=== PATIENT | male | born 1955 | race Caucasian/White ===

== ENCOUNTER 2018-02-20 06:19 | Inpatient (IN) ==
[~2018-02-20 06:19] MED LIST: Vancomycin 1,000 MG, Sodium Chloride IRRigation 1,000 ML IR ONE
[2018-02-20] MEDS ORDERED: CeFAZolin Syr 2,000MG/20 ML 2,000 MG/20 ML SYRINGE IVPB ONE (06:35)
[2018-02-20] MEDS ORDERED: Albuterol 2.5 MG/3 ML NEBULIZER IH ONE (06:35)
[2018-02-20] MEDS ORDERED: Heparin 1,000 UNITS/500 mL 500 ML ONE ×2 (06:42→10:19)
[2018-02-20] MEDS ORDERED: Ringers Solution, Lactated 1,000 ML IVC SCH (06:45)
[2018-02-20] MEDS ORDERED: Lidocaine -MPF 4% 5 ML AMPUL ONE (06:47)
[2018-02-20] MEDS ORDERED: *HR* Midazolam HCl 2 MG/2 ML VIAL ONE (07:00)
[2018-02-20] MEDS ORDERED: *HR* Propofol 200 MG/20 ML VIAL IVP ONE (07:00)
[2018-02-20] MEDS ORDERED: *HR* FentaNYL (PF) 100 MCG/2 ML VIAL ONE (07:00)
[2018-02-20] MEDS ORDERED: Dexamethasone 4 MG/ML VIAL ONE (07:01)
[2018-02-20] MEDS ORDERED: Ondansetron 4 MG/2 ML VIAL ONE (07:01)
[2018-02-20] MEDS ORDERED: *HR* Succinylcholine 200 MG/10 ML VIAL IVP ONE (07:01)
[2018-02-20] MEDS ORDERED: *HR* Rocuronium Bromide 50 MG/5 ML VIAL ONE (07:01)
[2018-02-20] MEDS ORDERED: Esmolol 100 MG/10 ML VIAL IVP ONE (07:01)
[2018-02-20] MEDS ORDERED: Lidocaine -MPF 2% 2 ML VIAL ONE ×3 (07:01→08:00)
[2018-02-20] MEDS ORDERED: *HR* Heparin 5,000 UNIT/ML VIAL ONE (07:01)
[2018-02-20] MEDS ORDERED: *HR* PHENYLEPHRINE 1,000 MCG/10 ML SYRINGE IVP ONE (07:01)
[2018-02-20] MEDS ORDERED: *HR* Phenylephrine 10 MG/ML VIAL ONE (07:09)
[2018-02-20] MEDS ORDERED: *HR* Remifentanil 2 MG VIAL IVP ONE (07:11)
[2018-02-20] MEDS ORDERED: *HR* Labetalol 100 MG/20 ML MDV ONE (07:15)
[2018-02-20] MEDS ORDERED: NiCARdipine 2.5 MG/10 ML Syringe IVPB ONE (07:15)
--- NOTE | 2018-02-20 07:17 | Anesthesia Evaluation PreOp ---
Date of Encounter: 02/20/18 Time of Encounter: 07:15 - Past History Planned Operation: Endograft repair AAA Cardiac History: Hyperlipidemia, Other (Infra-renal AAA measures 5.2 x 4.9 cm; hx DVT) Pulmonary History: Smoker, COPD MEDIA CENTER ASSISTANT History: Other (Lumbar disc disease) Other Medical History: GERD Anesthesia History: Past Anesthesia (5 shoulder surgeries, knee surgery, hernia repair), Problems (pleurisy/pneumonia after one of his shoulder surgeries) Alcohol Use: none Drug use: none Medications and Allergies Albuterol Sulfate [Ventolin Hfa] 108 aerosol IH Q4H PRN 02/20/18 [History] Aspirin [Ecotrin] 325 mg PO DAILY 02/20/18 [History] Gabapentin [Neurontin] 400 mg PO QID 02/20/18 [History] Naproxen Sodium [Aleve] 440 mg PO DAILY 02/20/18 [History] Omeprazole [PriLOSEC] 40 mg PO DAILY 02/20/18 [History] Oxycodone HCl/Acetaminophen [Percocet 7.5-325 mg Tablet] 1 each PO TID PRN 02/20/18 [History] clonazePAM [Clonazepam] 0.5 mg PO DAILY 02/20/18 [History] Allergy/AdvReac Type Severity Reaction Status Date / Time acetaminophen [From Vicodin] Allergy Itching Verified 02/17/15 12:56 hydrocodone [From Vicodin] Allergy Itching Verified 02/17/15 12:56 Sulfa (Sulfonamide Allergy Nausea Verified 02/17/15 12:56 Antibiotics) - Meds/Allergy Pre-op Review Medications Reviewed: Yes Allergies Reviewed: Yes Beta Blockers on Current Med List: No Anesthesia Results - Labs Laboratory Tests 02/14/18 02/14/18 02/14/18 12:05 12:05 12:05 WBC 10.2 Hgb 15.3 Hct 47.4 Plt Count 204 PT 10.6 INR 0.9 APTT 32.5 Sodium 138 Potassium 4.2 Chloride 104 Carbon Dioxide 30 H BUN 16 Creatinine 0.87 Est GFR ( Amer) > 60 Est GFR (Non-Af Amer) > 60 BUN/Creatinine Ratio 18 Glucose 97 Calculated Osmolality 287 Calcium 9.0 - Imaging EKG: image reviewed (Per stress test, NSR with RBBB) Additional studies: 02-12-18 Pharmacologic nuclear stress: Pharm stress ECG negative for ischemia at level of HR achieved Gated EF = 61% Medium sized, moderate intensity, fixed apical inferior apical septal and apex defect with normal wall motion. These findings are most consistent with artifact. Perfusion imaging was negative for ischemia or infarct. Anesthesia Exam Last Vital Signs Temp 98.1 F 02/20/18 06:48 Pulse 71 02/20/18 06:48 Resp 18 02/20/18 06:48 BP 153/93 02/20/18 06:48 Pulse Ox 94 02/20/18 06:48 Weight: 101 kg NPO (# of Hours): > 8 hrs - HEENT Pupil (Motor): Pupils equal, EOMI Mallampati: III Teeth: Edentulous Oral Opening: Greater than 3 - MEDIA CENTER ASSISTANT LOC: Oriented MEDIA CENTER ASSISTANT Motor: Normal RUE, Normal LUE, Normal RLE, Normal LLE, Normal Face - Cardiac Rhythm: Regular Murmur: None - Pulmonary Breath Sounds: bilateral Clear Respiratory Effort: Symmetrical Anesthesia Assess/Plan ASA Score: 3 Level of consciousness: Cooperative Anesthetic Plan: General Monitoring Plan: Standard Monitors (f), A-Line, CVC Recovery Plan: PACU
[2018-02-20] MEDS ORDERED: Heparin 1,000 UNITS/500 mL 1,500 ML ONE (07:21)
[2018-02-20] MEDS ORDERED: Isovue-300 150 ML INFUS..BTL ONE (07:22)
--- NOTE | 2018-02-20 07:33 | History & Physical Report ---
Date of Encounter: 02/20/18 Time of Encounter: 07:28 24 Hour HP Update - Instructions Instructions: If the History and Physical is less than 30 days old and was completed prior to A.M. admission and or procedure and has NOT been updated on calendar day of procedure please complete this update prior to performing procedure. - Update Patient reports changes in Medical Condition: No Changes in examination, assessment, or condition: No Changes in Medication: No Preop tests/diagnostics Reviewed: Yes Surgery Remains Indicated: Yes Consent for Planned Operative Procedure(s) Verified: Yes - Pre-Operative Checklist Preoperative Checklist Indicated: Yes Prophylactic Antibiotic Ordered: Yes (vancomycin due to MRSA risk) Home Medications Include Beta Chino: No Beta Chino Taken Today (Day of Surgery): No Beta Chino Taken Yesterday (Day Prior to Surgery): No Is VTE Prophylaxis Indicated?: Yes
[2018-02-20] MEDS ORDERED: Ondansetron 4 MG/2 ML VIAL IVP ONE (11:23)
[2018-02-20] MEDS ORDERED: *HR* Labetalol 20 MG/4 ML SYRINGE IVP PRN ×2 (11:23→12:27)
[2018-02-20] MEDS ORDERED: *HR* Promethazine 25 MG/ML VIAL IVP PRN (11:23)
[2018-02-20] MEDS ORDERED: *HR* OxyCODONE Immed Rel 5 MG TABLET PO PRN (11:23)
[2018-02-20] MEDS: *HR* HYDROmorphone (PF) 1 MG/ML SYRINGE IVP PRN ×4 (11:32→11:47)
--- NOTE | 2018-02-20 12:02 | Operative Note ---
Date of procedure: 02/20/18 Pre-op diagnosis: 5.2 cm infrarenal abdominal aortic aneurysm. Post-op diagnosis: same Procedure: 1. Endograft repair of 5.2cm infrarenal abdominal aortic aneurysm with Cook Zenith modular bifurcated graft with 2 docking limbs with radiologic supervision and interpretation. 2. Right femoral vessel exposure for endograft repair of abdominal aortic aneurysm. 3. Left femoral vessel exposure for endograft repair of abdominal aortic aneurysm. Complications: None Anesthesia: GETA Surgeon: Tomas Middleton Was there an information technology assistant present: Yes Seismic Survey Assistant: Gabriel Ravi Estimated blood loss (cc): 100 Specimen: None Condition: stable Disposition: PACU Procedure in Detail: Indications: The patient is a 62 year old male with a history of coronary artery disease, hypertension, diabetes and tobacco abuse. He was found to have a 5.3cm infrarenal abdominal aortic aneurysm. His anatomy was appropriate for endograft placement. Repair was recommended to reduce his risk of rupture. Procedure: The patient was identified, brought to the operating room and placed in the supine position on the operating room table. After induction of general endotracheal anesthesia, the patient was cleaned and draped in normal sterile fashion. Oblique incisions were made over both groins sharply. Hemostasis was obtained with electrocautery. Using blunt and sharp and electrocautery dissection, the right and left common, deep and superficial femoral arteries were dissected circumferentially and surrounded with Vesseloops. At this point, the patient received 5000 units of heparin intravenously and then bilateral femoral punctures with large-bore needles were performed. Bentson wires were advanced into the aorta under fluoroscopic view. Given the anatomy, the main body was selected to be the right side of the patient. The needles were exchanged for bilateral #8-Urugu[place] sheaths and a long Pigtail catheter was advanced over the right wire into the aortic arch. The wire was replaced with a Lunderquist wire. The catheter was removed and repositioned in the suprarenal aorta via the left femoral artery. The main body was inserted over the Lunderquist wire with the contralateral limb being in the anterolateral position. An aortogram was then performed at the level of the renal artery. The graft was positioned just below the renal arteries and the first 2 segments were deployed. A repeat aortogram revealed adequate infrarenal placement. The graft was then deployed until the contralateral limb exposed. After confirming adequate infrarenal placement, the suprarenal stent was deployed in the usual fashion. The contralateral limb was then selected with a Bentson wire using a guiding catheter. Intragraft placement of the wire was confirmed by placing the pigtail and spinning it freely as well as injecting a small amount of contrast. An oblique view of the pelvis was performed with contrast to size the left extension limb. The #8-U[place]ayan sheath was removed and exchanged for the appropria te limb, which was advanced under fluoroscopic view and positioned. It was then expanded and the introducer was removed. The remaining portion of the main body was deployed, the top cap was retrieved and the introducer was removed. An oblique view of the right pelvis was performed in a similar fashion to determine the length of the graft on the right. The graft extension was then advanced on the right and positioned in the usual fashion. Upon completion of the graft docking limb extension, a Coda balloon was then advanced into the graft proximal and distal endpoints as well as overlap were expanded with gentle pressure. The balloon was left in the suprarenal position and a Flush catheter was placed in the suprarenal aorta. A completion angiogram revealed no evidence of an endoleak. The left renal artery was not identified on completion angiography. Multiple attempts to cannulate the vessel with guiding catheters and wires were made. Additional angiography was performed it was then determined that the left renal artery was covered by the proximal graft and was occluded. Tension was applied to the Vesseloops in the groin. The bilateral sheaths were then removed. After confirming hemodynamic stability, the wires were then removed. The bilateral arteriotomies were repaired with a running 6-0 Prolene. Antibiotic irrigation was infused into the groin. Platelet rich and platelet poor plasma were infused into the incisions. The bilateral groins were closed with a single layer of 2-0 Vicryl followed by two layers of 3-0 Vicryl followed by a layer of 3-0 monocryl in the subcuticular region. Sterile dressings were applied. The patient was then extubated and taken to the recovery room in stable condition.
--- NOTE | 2018-02-20 12:18 | Anesthesia Evaluation Post Op ---
Date of Encounter: 02/20/18 Time of Encounter: 12:15 - Vital Signs Vital Signs: Vital Signs/O2 Sat, Most Current Temp Pulse Resp BP Pulse Ox 97.4 F L 65 14 165/95 95 02/20/18 12:07 02/20/18 12:07 02/20/18 12:07 02/20/18 12:07 02/20/18 12:07 - Lungs Lungs: Clear Ascult./Percussion - Airway Airway: Non-obstructed - Cardiovascular Regular Rate - Mental Status Mental Status: Alert & Oriented, Answers Appropriately - Pain Pain Scale: 5 (back) Pain Scale used: Numeric (1 - 10) - Nausea Vomiting Nausea Vomiting: Not Present - Hydration Hydration: Ice chips, Mauricio catheter - Discharge PostOp Status: Transfer Patient to floor
[2018-02-20] MEDS ORDERED: Ondansetron 4 MG/2 ML VIAL IVP PRN (12:27)
[2018-02-20] MEDS ORDERED: Acetaminophen 325 MG TABLET PO PRN (12:27)
[2018-02-20] MEDS ORDERED: Naloxone 0.4 MG/ML INJ IVP PRN (12:27)
[2018-02-20] MEDS ORDERED: OXYCODONE Oral CONC 10 MG/0.5 ML ORAL.SYG SL PRN ×2 (12:27)
[2018-02-20] MEDS: *HR* OxyCODONE/APAP 10/325 TABLET PO PRN ×2 (13:40→23:32)
[2018-02-20] MEDS: Gabapentin 400 MG CAPSULE PO SCH ×3 (13:40→20:47)
--- NOTE | 2018-02-20 14:17 | Operative Note ---
Date of procedure: 02/20/18 Pre-op diagnosis: Abdominal aortic aneurysm Post-op diagnosis: same Procedure: Endovascular repair of abdominal aortic aneurysm using a Cook Zenith endovascular stent graft system Bilateral open femoral artery exposure Anesthesia: GETA Surgeon: Tomas Middleton Co-Surgeon: Gabriel Ravi Was there an commercial lines assistant present: No Estimated blood loss (cc): 100 Specimen: 0 Condition: stable Disposition: PACU Procedure in Detail: History Jeison Szymanski is a 62-year-old white male. He was found to have a 5.2 cm abdominal aortic aneurysm. Patient OPERATING room for endovascular repair. Procedure After informed consent was obtained the patient was taken to the operating room. General endotracheal anesthesia was established under arterial line pressure monitoring. The abdomen and groin and upper thighs were sterilely prepped and draped. A timeout protocol was observed. A 2 team surgical approach was utilized for this procedure due to the patient's comorbid conditions. She was also done to facilitate intraoperative decision making and to reduce anesthetic time and blood loss. Bilateral common femoral artery exposure with then performed. Oblique incisions were made in the groin. Dissection was carried down to the femoral arteries and controlled obtained with vessel loops. The arteries were then punctured with 18- gauge needles. A wire was then inserted in this was followed by an 8 Yoruba sheath and dilator. The dilator was removed and the sheath was aspirated and flushed. Pigtail catheter was inserted via the right side and the wire was exchanged for a Lunderquist stiff wire. Pigtail catheter was then placed on the left side. The main body was selected and placed Viabahn right side. The main body was a 28 x 82 mm device. This was deployed after an antegrade was obtained demonstrating the aorta and position of the renal arteries. This device was deployed to the point that the docking limb on the left side was open. The suprarenal stent was then deployed as well. The left side was cannulated from the left groin. Appropriate position was confirmed by the insertion of contrast. Then an antegrade was obtained and measurements taken. The left-sided limb was a 16 x 90 mm graft limb. This was then inserted and deployed. Attention was then directed back to the right side. The right side was then fully deployed. An angiogram was obtained for the right limb and then the third and final component was deployed after an angiogram of the right iliac system. This was a 20 x 74 mm stent graft. A Coda balloon was then inserted and the stent graft was gently expanded. A completion antegrade was performed. This demonstrated no endoleak's. However the left renal artery was not patent. Attempts at cannulation of the left renal artery with a Sos Omni catheter and manipulation of the stent graft by deploying the Coda balloon and retracting the stent graft distally were unsuccessful in securing access to the orifice of the left renal artery. Therefore it was concluded that this vessel appeared to be covered and thrombosed. The right renal artery was widely patent. The iliac bifurcation was patent bilaterally. The securing devices were then removed. A 6-0 Prolene suture was used to close the access sites in the common femoral artery. After appropriate backbleeding and flushing the limbs were opened and pulsatile flow was restored to the lower extremities. The femoral incisions were then irrigated with antibody containing solution. Hemostasis was achieved. The wounds were then closed in layers using absorbable suture. The patient was extubated in the operating room. He was taken to the recovery room in stable condition.
[2018-02-20] MEDS: 0.9 % Sodium Chloride 1,000 ML IVC SCH (15:35)
[2018-02-20] MEDS: *HR* OxyCODONE Immed Rel 5 MG TABLET PO PRN ×2 (17:43→21:47)
[2018-02-20] MEDS: *HR* Metoprolol 5 MG/5 ML VIAL IVP SCH ×2 (17:46→23:25)
[2018-02-20] MEDS ORDERED: *HR* Heparin 5,000 UNIT/ML VIAL SQ SCH (18:00)
--- NOTE | 2018-02-20 19:03 | Event Note ---
Date of Encounter: 02/20/18 Time of Encounter: 18:30 The patient is alert and comfortable. He reports adequate pain control. He reports chronic lower back pain. He is making adequate urine. His abdomen is soft, nontender and nondistended. His bandages are dry and there are no hematomas. He will continue with intravenous hydration pain control on a clear liquid diet tonight. I will be advanced tomorrow. His labs will be rechecked in the morning with possible discharge tomorrow
[2018-02-20] MEDS ORDERED: clonazePAM 0.5 MG TABLET PO SCH (21:00)
[2018-02-21] MEDS: *HR* OxyCODONE Immed Rel 5 MG TABLET PO PRN ×2 (03:33→07:53)
[2018-02-21 04:06] LABS: Basophils % 0.1 %; Hematocrit 44.2 % (37.5-50.1); Hemoglobin 14.4 g/dL (12.9-16.9); Immature Granulocytes % 0.6 % (0-4); Lymphocytes # 1.1 K/mcL (0.6-4.6); Lymphocytes % 4.4 %; Mean Corpuscular HGB Conc 32.6 g/dL (31.6-35.5); Mean Corpuscular Hemoglobin 29.8 pg (28.0-33.3); Mean Corpuscular Volume 91.5 fL (83.0-100.0); Mean Platelet Volume 10.7 fL (9.4-12.4); Monocytes # 1.5 K/mcL (0.0-1.3); Monocytes % 6.1 %; Neutrophils # 21.8 K/mcL (1.6-8.9); Platelet Count 188 K/mcL (140-400); Red Blood Count 4.83 M/mcL (4.19-5.50); Red Cell Distribution Width 12.8 % (11.5-14.5); Segmented Neutrophils % 88.8 %
[2018-02-21 04:26] LABS: BUN/Creatinine Ratio 14 (6-26); Blood Urea Nitrogen 17 mg/dL (8-23); Calcium 8.4 mg/dL (8.6-10.3); Carbon Dioxide 25 mEq/L (23-29); Chloride 105 mEq/L (98-107); Glucose 122 mg/dL (70-105); Osmolality,Calculated 287 (280-300); Potassium 4.5 mEq/L (3.5-5.1); Sodium 137 mEq/L (136-145); eGFR For Non-African Americans 59 (> 60)
[2018-02-21 04:36] LABS: Platelet Estimate Normal (Normal)
[2018-02-21] MEDS: 0.9 % Sodium Chloride 1,000 ML IVC SCH (04:40)
[2018-02-21] MEDS: *HR* Metoprolol 5 MG/5 ML VIAL IVP SCH ×2 (05:50→12:08)
[2018-02-21] MEDS: *HR* OxyCODONE/APAP 10/325 TABLET PO PRN ×2 (05:53→12:10)
[2018-02-21] MEDS ORDERED: *HR* Heparin 5,000 UNIT/ML VIAL SQ SCH (06:00)
--- NOTE | 2018-02-21 07:31 | Discharge Summary ---
Orders not resulted at time of discharge: Pending orders 02/22/18 04:00 Basic Metabolic Panel AM 0400 Complete Blood Count [HEME] AM 0400 Date of Encounter: 02/21/18 Time of Encounter: 07:40 - Discharge Diagnosis (1) AAA (abdominal aortic aneurysm) without rupture Status: Acute - Hospital Course Hospital course: Mr. Szymanski is a 62 year old male - Time Spent with Patient Total time spent providing and/or coordinating discharge services: - Discharge Medications Prescriptions: OxyCODONE/APAP 10/325 [Percocet 10/325 MG] 1 each PO Q4HR PRN 5 Days #30 tablet PRN Reason: Postoperative pain Home Medications: Albuterol Sulfate [Ventolin Hfa] 108 aerosol IH Q4H PRN 02/20/18 [History] Aspirin [Ecotrin] 325 mg PO DAILY 02/20/18 [History] Gabapentin [Neurontin] 400 mg PO QID 02/20/18 [History] Naproxen Sodium [Aleve] 440 mg PO DAILY 02/20/18 [History] Omeprazole [PriLOSEC] 40 mg PO DAILY 02/20/18 [History] Oxycodone HCl/Acetaminophen [Percocet 7.5-325 mg Tablet] 1 each PO TID PRN 02/20/18 [History] clonazePAM [Clonazepam] 0.5 mg PO DAILY 02/20/18 [History] OxyCODONE/APAP 10/325 [Percocet 10/325 MG] 1 each PO Q4HR PRN 5 Days #30 tablet 02/21/18 [Rx] Allergies/Adverse Reactions: Allergy/AdvReac Type Severity Reaction Status Date / Time acetaminophen [From Vicodin] Allergy Itching Verified 02/17/15 12:56 hydrocodone [From Vicodin] Allergy Itching Verified 02/17/15 12:56 Sulfa (Sulfonamide Allergy Nausea Verified 02/17/15 12:56 Antibiotics) Date of admission: 02/20/18 12:23 Primary care physician: Osmin Oliver MD Exam Vital Signs, Last 4 Hours Temp Pulse Resp BP Pulse Ox 02/21/18 07:16 98.4 F 78 18 133/78 95 02/21/18 06:40 56 122/71 02/21/18 05:50 55 145/74 02/21/18 04:35 56 146/74 02/21/18 03:54 99.3 F 57 18 132/72 94 02/21/18 03:37 57 132/72 - Patient Status Disposition: Home, Self-Care Condition: Good Functional capacity at discharge: independent ambulation Overall status at discharge: patient is back to baseline - Discharge Instructions Follow Up With: Tomas Middleton MD [Partnered Physician] - 03/26/18 3:50 pm Osmin Oliver MD [Primary Care Provider] - 02/28/18 4:00 pm Additional Instructions: Remove bandage and shower on 02/22/2018: Wash wounds gently and pat to dry. Applied dry gauze to wounds daily for 7 days. No tub baths or swimming until 03/20/2018. Call Dr. Middleton at [phone] with questions or concerns. - Diet and Activity Activity: increase activity as tolerated Diet: advance to your usual diet
[2018-02-21] MEDS: Gabapentin 400 MG CAPSULE PO SCH ×2 (07:53→12:11)
[2018-02-21] MEDS ORDERED: Aspirin Enteric Coated 325 MG Tablet PO SCH (09:00)
[2018-02-21 11:16] VITALS: BP 131/70
== END 2018-02-21 14:19 | disposition home or self-care (01) | DRG 269 ==
LOC: SAMDAY 06:19 → ICNU 12:23 → 2NNU 17:16
PROVIDERS: ADMIT Surgery; ATTEND Surgery

== ENCOUNTER 2018-07-27 10:58 | Inpatient (IN) ==
[2018-07-27] MEDS ORDERED: Ipratropium/Albuterol Neb 3 ML IH ONE (11:40)
--- NOTE | 2018-07-27 11:43 | Emergency Department Note ---
Disposition Clinical Impression: ACS (acute coronary syndrome) Disposition: Admitted As Inpatient Referrals: NONE,PCP [Primary Care Provider] - General Adult HPI - General Chief complaint: ED Shortness of Breath/Dyspnea Stated complaint: Bi-lateral LE swelling,SUSAN,ABD Pain Time Seen by Provider: 07/27/18 11:05 Source: patient Mode of arrival: ambulatory Limitations: no limitations Nursing Notes Reviewed: Yes Vital Signs Reviewed: Yes - History of Present Illness HPI Narrative: Attestation note: Patient was seen with the emergency medicine resident/nurse practitioner/physician medical assistant per diem/transitional resident/medical student: Dr. MARCIAL DUCKWORTH I have personally performed a face to face evaluation on this patient. I have reviewed and agree with history and physical examination patient management and disposition. Briefly the salient points of the case are as follows: 63-year-old male history of COPD obesity smoker 3 weeks of increasing leg swelling or orthopnea paroxy smal nocturnal dyspnea and chest discomfort has had several vascular surgeries has no known coronary artery disease and no recent cardiac workup heart score is 4 at least. EKG shows no acute ischemic changes does have bilateral swelling of his extremities consistent with edema no rales or rhonchi Lungs initially was hypoxic 91% on room air Adjustment was 97 patient will get chest x-ray screening labs patient will be admitted for ACS workup. Patient will be getting 325 mg of aspirin providing 30 minutes critical care service for this patient. Disposition pending Pain Scale: 9 - Related Data Home Medications Medication Instructions Recorded Confirmed Albuterol Sulfate [Ventolin Hfa] 108 aerosol IH Q4H PRN 02/20/18 02/20/18 Aspirin [Ecotrin] 325 mg PO DAILY 02/20/18 02/20/18 Gabapentin [Neurontin] 400 mg PO QID 02/20/18 02/20/18 Naproxen Sodium [Aleve] 440 mg PO DAILY 02/20/18 02/20/18 Omeprazole [PriLOSEC] 40 mg PO DAILY 02/20/18 02/20/18 Oxycodone HCl/Acetaminophen 1 each PO TID PRN 02/20/18 02/20/18 [Percocet 7.5-325 mg Tablet] clonazePAM [Clonazepam] 0.5 mg PO DAILY 02/20/18 02/20/18 Allergies Allergy/AdvReac Type Severity Reaction Status Date / Time acetaminophen [From Vicodin] Allergy Itching Verified 07/27/18 11:03 hydrocodone [From Vicodin] Allergy Itching Verified 07/27/18 11:03 Sulfa (Sulfonamide Allergy Nausea Verified 07/27/18 11:03 Antibiotics) Past Medical History - Past Medical History Medical history: Reports: COPD, DVT, GERD Psychiatric history: Reports: no psych history - Social History Smoking Status: Current every day smoker Smokeless Tobacco Status: No Alcohol use: Reports: none Drug use: Reports: none Physical Exam - General General appearance: alert Course Vital Signs Temperature 97.4 F L 07/27/18 11:03 Pulse Rate 82 07/27/18 11:03 Respiratory Rate 18 07/27/18 11:03 Blood Pressure 109/85 07/27/18 11:03 O2 Sat by Pulse Oximetry 91 07/27/18 11:03 Temperature 97.4 F L 07/27/18 11:10 Pulse Rate 91 07/27/18 11:21 Respiratory Rate 20 07/27/18 11:21 Blood Pressure 164/108 07/27/18 11:21 O2 Sat by Pulse Oximetry 93 07/27/18 11:21 Oxygen Delivery Oxygen Delivery Room Air
[2018-07-27 11:47] LABS: Basophils # 0.1 K/mcL (0.0-0.2); Basophils % 0.5 %; Eosinophils # 0.2 K/mcL (0.0-0.6); Eosinophils % 1.9 %; Hematocrit 47.6 % (37.5-50.1); Hemoglobin 14.9 g/dL (12.9-16.9); Immature Granulocytes % 0.3 % (0-4); Lymphocytes # 1.6 K/mcL (0.6-4.6); Lymphocytes % 15.2 %; Mean Corpuscular HGB Conc 31.3 g/dL (31.6-35.5); Mean Corpuscular Volume 89.3 fL (83.0-100.0); Mean Platelet Volume 10.3 fL (9.4-12.4); Monocytes # 0.6 K/mcL (0.0-1.3); Monocytes % 5.4 %; Platelet Count 203 K/mcL (140-400); Red Blood Count 5.33 M/mcL (4.19-5.50); Red Cell Distribution Width 14.1 % (11.5-14.5); Segmented Neutrophils % 76.7 %
[2018-07-27 12:10] LABS: Albumin 4.2 g/dL (3.5-5.7); Albumin/Globulin Ratio 1.5 (1.1-2.2); Bilirubin,Direct 0.2 mg/dL (0.0-0.2); Bilirubin,Indirect 0.5 mg/dL (0.0-1.2); Bilirubin,Total 0.7 mg/dL (0.3-1.0); Globulin 2.8 g/dL (2.4-3.5)
--- NOTE | 2018-07-27 12:15 | Emergency Department Note ---
Disposition Clinical Impression: Elevated troponin CHF (congestive heart failure) Qualifiers: Heart failure type: unspecified Heart failure chronicity: acute Qualified Code(s): I50.9 - Heart failure, unspecified COPD (chronic obstructive pulmonary disease) Qualifiers: COPD type: unspecified COPD Qualified Code(s): J44.9 - Chronic obstructive pulmonary disease, unspecified Disposition: Admitted As Inpatient Referrals: NONE,PCP [Primary Care Provider] - Forms: ED Satisfaction Letter Time of Disposition: 12:31 General Adult HPI - General Chief complaint: ED Shortness of Breath/Dyspnea Stated complaint: Bi-lateral LE swelling,SUSAN,ABD Pain Time Seen by Provider: 07/27/18 11:05 Source: patient Mode of arrival: ambulatory Limitations: no limitations Nursing Notes Reviewed: Yes Vital Signs Reviewed: Yes - History of Present Illness HPI Narrative: 63 yo male with past medical history of AAA repair in February, COPD presents to the emergency department with several weeks of worsening abdominal distention, lower leg edema and shortness of breath. Patient states that last night he was unable to sleep while laying flat and this concerned him and his . He has never had anything like this happen before and has no history of heart attack or heart failure. He does have a family history of heart issues but does not know exactly what was wrong with either of his parents. Patient denies fever, chills, chest pain. He does admit to waking up in the middle the night with increased shortness of breath. He has also had shortness of breath with exertion. He has been coughing up some whitish sputum mostly in the mornings. He denies nausea and vomiting. He has been urinating appropriately without burning or blood. Pain Scale: 9 - Related Data Home Medications Medication Instructions Recorded Confirmed Albuterol Sulfate [Ventolin Hfa] 108 aerosol IH Q4H PRN 02/20/18 02/20/18 Aspirin [Ecotrin] 325 mg PO DAILY 02/20/18 02/20/18 Gabapentin [Neurontin] 400 mg PO QID 02/20/18 02/20/18 Naproxen Sodium [Aleve] 440 mg PO DAILY 02/20/18 02/20/18 Omeprazole [PriLOSEC] 40 mg PO DAILY 02/20/18 02/20/18 Oxycodone HCl/Acetaminophen 1 each PO TID PRN 12/06/18 12/06/18 [Percocet 7.5-325 mg Tablet] clonazePAM [Clonazepam] 0.5 mg PO DAILY 02/20/18 02/20/18 Allergies Allergy/AdvReac Type Severity Reaction Status Date / Time acetaminophen [From Vicodin] Allergy Itching Verified 07/27/18 11:03 hydrocodone [From Vicodin] Allergy Itching Verified 07/27/18 11:03 Sulfa (Sulfonamide Allergy Nausea Verified 07/27/18 11:03 Antibiotics) All systems ED: reviewed and negative except as stated. Review of Systems: As Per HPI Constitutional: Denies: fever, chills, weakness Cardiovascular: Reports: dyspnea on exertion, orthopnea, edema, paroxysmal nocturnal dyspnea. Denies: chest pain, palpitations, syncope Respiratory: Reports: cough, dyspnea. Denies: wheezes, hemoptysis Gastrointestinal: Reports: abdominal pain. Denies: nausea, vomiting, diarrhea Genitourinary: Denies: dysuria, hematuria Musculoskeletal: Denies: back pain, neck pain Integumentary: Denies: rash Neurological: Denies: headache Endocrine: Reports: fatigue Past Medical History - Past Medical History Attestation: Yes The following information was validated with the patient. Source: patient Medical history: Reports: COPD, DVT, GERD Psychiatric history: Reports: no psych history - Social History Smoking Status: Current every day smoker Smokeless Tobacco Status: No Alcohol use: Reports: none Drug use: Reports: none Physical Exam - General Limitations: no limitations General appearance: alert, in no apparent distress - Head Head exam: atraumatic, normocephalic - Eye Eye exam: Present: normal appearance, PERRL, EOMI - ENT ENT exam: normal exam - Neck Neck exam: Present: normal inspection. Absent: tenderness - Chest Chest inspection: Present: normal inspection. Absent: tenderness, rash - Respiratory Respiratory exam: Present: normal lung sounds bilaterally - Cardiovascular Cardiovascular exam: Present: regular rate, normal rhythm - Abdominal Exam Abdominal exam: Present: tenderness, distention. Absent: guarding, rebound, rigidity Abdominal tenderness: Present: diffuse, mild - Extremities Exam Extremities exam: Present: pedal edema (1+ pitting edema to mid bryant). Absent: calf tenderness - Neurological Exam Neurological exam: Present: alert, oriented X3 - Psychiatric Psychiatric exam: Present: normal affect, normal mood - Skin Skin exam: Present: warm, dry, intact Course Vital Signs Temperature 97.4 F L 07/27/18 11:03 Pulse Rate 82 07/27/18 11:03 Respiratory Rate 18 07/27/18 11:03 Blood Pressure 109/85 07/27/18 11:03 O2 Sat by Pulse Oximetry 91 07/27/18 11:03 Temperature 97.4 F L 07/27/18 11:10 Pulse Rate 79 07/27/18 12:28 Respiratory Rate 18 07/27/18 12:28 Blood Pressure 149/96 07/27/18 12:28 O2 Sat by Pulse Oximetry 96 07/27/18 12:28 Oxygen Delivery Oxygen Delivery Nasal Cannula Medical Decision Making - [facility] Narrative Medical decision making narrative: Patient presents with signs and symptoms concerning for new onset heart failure. Patient will be evaluated with EKG, chest x-ray, basic lab work, troponin, BNP. 1220 - patient's chest x-ray shows evidence of pulmonary edema and mild cardiomegaly. EKG did not show any acute changes. Patient's troponin is elev ated at 0.07, as he is not currently having any chest pain it is unlikely that this is from ACS and more likely due to his new heart failure or stress from his COPD. The patient will be admitted to the hospitalist for his heart failure workup and to continue to trend troponins. The patient will be given an aspirin and Lasix at this time. Patient was updated of this plan of care and is agreeable with that. - Medical Records Medical records reviewed: Yes I reviewed the patient's medical records. - Lab Data Lab results reviewed: Yes I reviewed the patient's lab results. Result diagrams: 07/27/18 11:20 07/27/18 11:20 Lab Results 07/27/18 07/27/18 07/27/18 Range/Units 11:20 11:20 11:20 WBC 10.4 (4.3-11.1) K/mcL RBC 5.33 (4.19-5.50) M/mcL Hgb 14.9 (12.9-16.9) g/dL Hct 47.6 (37.5-50.1) % MCV 89.3 (83.0-100.0) fL MCH 28.0 (28.0-33.3) pg MCHC 31.3 L (31.6-35.5) g/dL RDW 14.1 (11.5-14.5) % Plt Count 203 (140-400) K/mcL MPV 10.3 (9.4-12.4) fL Immature Gran % 0.3 (0-4) % Seg Neutrophils % 76.7 % Lymphocytes % 15.2 % Monocytes % 5.4 % Eosinophils % 1.9 % Basophils % 0.5 % Neutrophils # 8.0 (1.6-8.9) K/mcL Lymphocytes # 1.6 (0.6-4.6) K/mcL Monocytes # 0.6 (0.0-1.3) K/mcL Eosinophils # 0.2 (0.0-0.6) K/mcL Basophils # 0.1 (0.0-0.2) K/mcL Sodium 142 (136-145) mEq/L Potassium 4.3 (3.5-5.1) mEq/L Chloride 105 (98-107) mEq/L Carbon Dioxide 31 H (23-29) mEq/L BUN 15 (8-23) mg/dL Creatinine 1.26 (0.70-1.30) mg/dL Est GFR ( Amer) > 60 (> 60) Est GFR (Non-Af Amer) 58 L (> 60) BUN/Creatinine Ratio 12 (6-26) Glucose 105 (70-105) mg/dL Calculated Osmolality 295 (280-300) Calcium 9.7 (8.6-10.3) mg/dL Total Bilirubin (0.3-1.0) mg/dL Direct Bilirubin (0.0-0.2) mg/dL Indirect Bilirubin (0.0-1.2) mg/dL AST (13-39) Units/L ALT (7-52) Units/L Alkaline Phosphatase (34-104) Units/L Troponin I 0.07 H* (< 0.04) ng/mL B-Natriuretic Peptide 772 H (Less than 100) pg/mL Serum Total Protein (6.4-8.9) g/dL Albumin (3.5-5.7) g/dL Globulin (2.4-3.5) g/dL Albumin/Globulin Ratio (1.1-2.2) 07/27/18 Range/Units 11:20 WBC (4.3-11.1) K/mcL RBC (4.19-5.50) M/mcL Hgb (12.9-16.9) g/dL Hct (37.5-50.1) % MCV (83.0-100.0) fL MCH (28.0-33.3) pg MCHC (31.6-35.5) g/dL RDW (11.5-14.5) % Plt Count (140-400) K/mcL MPV (9.4-12.4) fL Immature Gran % (0-4) % Seg Neutrophils % % Lymphocytes % % Monocytes % % Eosinophils % % Basophils % % Neutrophils # (1.6-8.9) K/mcL Lymphocytes # (0.6-4.6) K/mcL Monocytes # (0.0-1.3) K/mcL Eosinophils # (0.0-0.6) K/mcL Basophils # (0.0-0.2) K/mcL Sodium (136-145) mEq/L Potassium (3.5-5.1) mEq/L Chloride (98-107) mEq/L Carbon Dioxide (23-29) mEq/L BUN (8-23) mg/dL Creatinine (0.70-1.30) mg/dL Est GFR ( Amer) (> 60) Est GFR (Non-Af Amer) (> 60) BUN/Creatinine Ratio (6-26) Glucose (70-105) mg/dL Calculated Osmolality (280-300) Calcium (8.6-10.3) mg/dL Total Bilirubin 0.7 (0.3-1.0) mg/dL Direct Bilirubin 0.2 (0.0-0.2) mg/dL Indirect Bilirubin 0.5 (0.0-1.2) mg/dL AST 21 (13-39) Units/L ALT 17 (7-52) Units/L Alkaline Phosphatase 80 (34-104) Units/L Troponin I (< 0.04) ng/mL B-Natriuretic Peptide (Less than 100) pg/mL Serum Total Protein 7.0 (6.4-8.9) g/dL Albumin 4.2 (3.5-5.7) g/dL Globulin 2.8 (2.4-3.5) g/dL Albumin/Globulin Ratio 1.5 (1.1-2.2) - Radiology Data Radiology results reviewed: Yes I reviewed the patient's radiology results. - EKG Data EKG #1 EKG attestation: Yes I reviewed and interpreted this EKG. EKG results narrative: EKG obtained at 11:14 on 07/27/2018 Heart rate 87 bpm, ME interval 144, QRS duration 123, QT 504, QTC 607 Sinus rhythm with PACs. Nonspecific intraventricular conduction delay. No signs of ST segment elevations or depressions. No significant changes when compared to previous EKG dated 01/09/2006.
[2018-07-27 12:20] LABS: BUN/Creatinine Ratio 12 (6-26); Blood Urea Nitrogen 15 mg/dL (8-23); Calcium 9.7 mg/dL (8.6-10.3); Carbon Dioxide 31 mEq/L (23-29); Chloride 105 mEq/L (98-107); Glucose 105 mg/dL (70-105); Osmolality,Calculated 295 (280-300); Potassium 4.3 mEq/L (3.5-5.1); Sodium 142 mEq/L (136-145); Troponin I 0.07 ng/mL (< 0.04); eGFR For Non-African Americans 58 (> 60)
[2018-07-27] MEDS ORDERED: Aspirin 81 MG TAB.CHEW PO ONE (12:20)
[2018-07-27] MEDS ORDERED: Furosemide 20 MG/2 ML VIAL IVP ONE (12:27)
[2018-07-27] MEDS ORDERED: Naloxone 0.4 MG/ML INJ IVP PRN (13:27)
[2018-07-27] MEDS ORDERED: Ipratropium/Albuterol Neb 3 ML IH PRN (13:38)
[2018-07-27] MEDS: Furosemide 40 MG/4 ML VIAL IVP SCH ×2 (14:38→20:18)
--- NOTE | 2018-07-27 17:20 | Internal Med History&Physical ---
Date of Encounter: 07/27/18 Time of Encounter: 17:00 Internal Medicine - H&P: HPI Chief complaint: Shortness of breath for several days History of present illness: Mr. Szymanski is a 63 year old male with pmh of AAA repair in february, COPD presenting with complaints of shortness of breath of about 4 week s duration. Patient says he ahs noticed worsening abdominal swelling and lower extremity edema in the last 2 weeks. Shortness of breath has gotten so sever to the point he is unable to lay flat in a bed and had to sleep sitting upright in a chair last night. He denies any coughing or wheezing, or any phlegm production. He recalls his dad had heart failure and was on lasix but he has never been diagnosed with heart failure himself. He denies any fevers , chills or chest pain In the ER, he was given one dose of lasix and a breathing treatment. CXR showed pulmonary edema and he is being admitted for further management Past Med Surg Social Fam HX - Past Medical History Medical history: COPD, DVT, GERD Additional medical history: LDDD, RLS. Psychiatric history: no psych history - Past Surgical History Additional surgical history: AAA, Left Shoulder Sx x5, Marita, Hernia Repair, - Social History Smoking Status: Current every day smoker Packs per day: 1.5 Smokeless Tobacco Status: No Alcohol use: none Drug use: none - Family History Mother Living Status: Hx Family Cardiac Disorders: Yes (AICD) Hx Family Respiratory Disorders: Yes Father Living Status: Hx Family Cardiac Disorders: Yes Hx Family Respiratory Disorders: Yes Internal Medicine - H&P: Meds Albuterol Sulfate [Ventolin Hfa] 108 aerosol IH Q4H PRN 02/20/18 [History] Aspirin [Ecotrin] 325 mg PO DAILY 02/20/18 [History] Gabapentin [Neurontin] 400 mg PO QID 02/20/18 [History] Naproxen Sodium [Aleve] 440 mg PO DAILY 02/20/18 [History] Omeprazole [PriLOSEC] 40 mg PO DAILY 02/20/18 [History] Oxycodone HCl/Acetaminophen [Percocet 7.5-325 mg Tablet] 1 each PO TID PRN 02/20/18 [History] clonazePAM [Clonazepam] 0.5 mg PO DAILY 02/20/18 [History] Allergy/AdvReac Type Severity Reaction Status Date / Time acetaminophen [From Vicodin] Allergy Itching Verified 07/27/18 11:03 hydrocodone [From Vicodin] Allergy Itching Verified 07/27/18 11:03 Sulfa (Sulfonamide Allergy Nausea Verified 07/27/18 11:03 Antibiotics) All Systems PM: A 10-system review of systems was performed and is negative for pertinent findings except as documented above in the HPI. - Constitutional Constitutional: no chills, no fever(s), no night sweats - EENT Eyes: no change in vision, no discharge, no pain, no photophobia Ears: no ear discharge, no ear pain, no tinnitus Nose, mouth and throat: no dysphagia, no nasal discharge, no neck pain, no sore throat - Cardiovascular Cardiovascular ROS IM: dyspnea, no chest pain, no diaphoresis, no li ghtheadedness, no palpitations, no syncope - Respiratory Respiratory: cough, dyspnea, no wheezing, no excessive phlegm production - Gastrointestinal Gastrointestinal: no abdominal pain, no diarrhea, no hematemesis, no radha tochezia, no melena, no nausea, no vomiting - Musculoskeletal Musculoskeletal ROS IM: no numbness, no tingling - Integumentary Integumentary IM: no rash, no unusual bruising - Neurological Neurological ROS: no confusion, no convulsions, no focal weakness, no numbness, no tingling, no tremor(s) - Hematologic/Lymphatic Hematologic/Lymphatic: no easy bruising - Constitutional Vitals: Temp Pulse Resp BP Pulse Ox 98.3 F 72 17 153/94 92 07/27/18 14:33 07/27/18 14:33 07/27/18 14:33 07/27/18 14:33 07/27/18 14:33 General appearance: Present: A&O X 3 Exam: NAD - Head Head exam: Present: atraumatic, normocephalic - Eye Eye exam: Present: PERRL, conjuntiva pink, sclera anicteric Pupils: Present: PERRL - Neck Neck exam general surgery: Present: supple, trachea midline. Absent: lymphad enopathy - Respiratory Respiratory exam: Present: decreased breath sounds, rales. Absent: accessory muscle use, rhonchi, wheezes - Cardiovascular Cardiovascular exam: Present: RRR, +S1, +S2. Absent: diastolic murmur, gallop, rubs, systolic murmur - GI/Abdominal GI/Abdominal exam: Present: normal bowel sounds, soft, no peritoneal signs. Absent: distended, tenderness - Extremities Exam Extremities exam: Present: pedal edema, warm, radial pulses palpable and symmetrical. Absent: calf tenderness, cyanotic - Neurological Exam Neurological exam: Present: CN II-XII intact, oriented X3, no focal deficits. Absent: pronater drift, facial droop, speech deficit - Skin Skin exam: Present: dry, intact Internal Med - H&P Results - Labs CBC & Chem 7: 07/27/18 11:20 07/27/18 11:20 Labs: Short CBC 07/27/18 Range/Units 11:20 WBC 10.4 (4.3-11.1) K/mcL Hgb 14.9 (12.9-16.9) g/dL Hct 47.6 (37.5-50.1) % Plt Count 203 (140-400) K/mcL Neutrophils # 8.0 (1.6-8.9) K/mcL BMP 07/27/18 11:20 Sodium 142 Potassium 4.3 Chloride 105 Carbon Dioxide 31 H BUN 15 Creatinine 1.26 Glucose 105 Calcium 9.7 Cardiac Enzymes 07/27/18 07/27/18 Range/Units 11:20 14:49 Troponin I 0.07 H* 0.06 H* (< 0.04) ng/mL Liver Function 07/27/18 Range/Units 11:20 Total Bilirubin 0.7 (0.3-1.0) mg/dL Direct Bilirubin 0.2 (0.0-0.2) mg/dL AST 21 (13-39) Units/L ALT 17 (7-52) Units/L Alkaline Phosphatase 80 (34-104) Units/L Albumin 4.2 (3.5-5.7) g/dL - Impressions ITS Impressions Chest X-Ray 07/27/18 11:34 IMPRESSION: CHF and mild pulmonary edema. D/ / Sae Gamboa MD / Sae Gamboa MD Interpreting Provider: Sae Gamboa MD - Assessment and Plan (1) CHF (congestive heart failure) Current Visit: Yes Status: Acute Assessment and plan: Pt comes in with shortness of breath and orthopnea likely secondary to acute CHF CXR shows pulmonary edema. Will start on BID lasix . Obtain 2d echo Start beta blockers when acute CHF improves Qualifiers: Heart failure type: unspecified Heart failure chronicity: acute Qualified Code(s): I50.9 - Heart failure, unspecified (2) COPD (chronic obstructive pulmonary disease) Current Visit: Yes Status: Acute Assessment and plan: No acute exacerbation. Nebs PRN Qualifiers: COPD type: unspecified COPD Qualified Code(s): J44.9 - Chronic obstructive pulmonary disease, unspecified (3) AAA (abdominal aortic aneurysm) without rupture Current Visit: No Status: Acute Assessment and plan: Stable. No acute intervention (4) Tobacco abuse Current Visit: Yes Status: Acute Assessment and plan: Counseled (5) Elevated troponin Current Visit: Yes Status: Acute Assessment and plan: Likely demand. No acute intervention (6) DVT prophylaxis Current Visit: Yes Status: Acute Assessment and plan: heparin sc - Time Spent With Patient Total time spent is greater than 50% in coordination of care (as documented) at patient's floor/unit and/or counseling patient:
[2018-07-27] MEDS: Gabapentin 400 MG CAPSULE PO SCH ×2 (18:01→20:19)
[2018-07-27] MEDS: *HR* Heparin 5,000 UNIT/ML VIAL SQ SCH (18:02)
[2018-07-27] MEDS: Nicotine 21 MG PATCH.TD24 TD SCH (20:18)
[2018-07-27] MEDS: *HR* OxyCODONE/APAP 7.5/325 TABLET PO PRN (20:19)
[2018-07-28 02:51] LABS: Basophils # 0.1 K/mcL (0.0-0.2); Basophils % 0.4 %; Eosinophils # 0.3 K/mcL (0.0-0.6); Eosinophils % 2.5 %; Hematocrit 45.7 % (37.5-50.1); Hemoglobin 14.9 g/dL (12.9-16.9); Immature Granulocytes % 0.2 % (0-4); Lymphocytes % 15.2 %; Mean Corpuscular HGB Conc 32.6 g/dL (31.6-35.5); Mean Corpuscular Hemoglobin 28.7 pg (28.0-33.3); Mean Corpuscular Volume 87.9 fL (83.0-100.0); Mean Platelet Volume 10.7 fL (9.4-12.4); Monocytes % 7.6 %; Neutrophils # 9.5 K/mcL (1.6-8.9); Platelet Count 222 K/mcL (140-400); Red Cell Distribution Width 14.1 % (11.5-14.5); Segmented Neutrophils % 74.1 %
[2018-07-28 03:14] LABS: Magnesium 2.1 mg/dL (1.6-2.6); Phosphorous 3.6 mg/dL (2.7-4.5); Potassium 3.5 mEq/L (3.5-5.1)
[2018-07-28] MEDS: *HR* Heparin 5,000 UNIT/ML VIAL SQ SCH ×2 (04:54→18:39)
[2018-07-28] MEDS: *HR* OxyCODONE/APAP 7.5/325 TABLET PO PRN ×3 (04:54→21:40)
[2018-07-28] MEDS ORDERED: Perflutren Lipid Microsphere 1.3 ML in 0.9 % Sodium Chloride 8.7 ML IVP ONE (07:38)
[2018-07-28] MEDS ORDERED: NAPROXEN SODIUM 440 MG PO SCH (09:00)
[2018-07-28] MEDS: Nicotine 21 MG PATCH.TD24 TD SCH (10:19)
[2018-07-28] MEDS: Gabapentin 400 MG CAPSULE PO SCH ×4 (10:20→21:40)
[2018-07-28] MEDS: clonazePAM 0.5 MG TABLET PO SCH (10:20)
[2018-07-28] MEDS: Aspirin Enteric Coated 325 MG Tablet PO SCH (10:20)
[2018-07-28] MEDS: Furosemide 40 MG/4 ML VIAL IVP SCH (10:20)
--- NOTE | 2018-07-28 13:29 | Internal Med Progress Note ---
Hospitalist Progress Note - Encounter Date of Encounter: 07/28/18 Time of Encounter: 13:26 - Subjective Interval History: Mr. Szymanski is a 63 year old male with known PMH of AAA repair in February, COPD, chronic tobacco dependence and GERD pt presented to ER with complaints of progressively worsening shortness of breath about 4 week s duration. Patient sa ys he has noticed worsening lower extremity edema in the last 2 weeks. Shortness of breath has gotten so sever to the point he is unable to lay flat in a bed and had to sleep sitting upright in a chair last night. CXR showed pulmonary edema. He was admitted in the hospital and placed him on alarm security or surveillance monitor. His troponin's was slightly elevated at 0.07 and adynamic. He was placed on IV Lasix. Patient stated his feeding much better today. Denied anymore shortness of breath / LE edema. Denied any CP. - Exam Vitals: Temp Pulse Resp BP Pulse Ox 98.0 F 84 18 148/95 92 07/28/18 11:31 07/28/18 11:31 07/28/18 11:31 07/28/18 11:31 07/28/18 11:31 Exam: Gen: Alert, awake, Oriented to time,place and person Chest: Diminished breath sounds B/L, mild wheezing, No crackles, No rales Heart: S1S2+ RRR No murmurs Abd: Soft, NT, BS +, No organomegaly Ext: trace edema, pulses are palpable, No calf tenderness Neuro : Benign findings Skin: No rash. - Assessment and Plan (1) CHF (congestive heart failure) Current Visit: Yes Status: Acute Assessment and Plan: Pt comes in with shortness of breath and orthopnea likely secondary to acute CHF CXR shows pulmonary edema. His 2 D Echo showed - LVEF 35-40%, Moderate left ventricular diastolic dysfunction so he does have combined Systolic and diastolic CHF exacerbation Cont IV Lasix 20mg BID Started him on BB Metoprolol 25mg BID, Lisinopril and ASA check FLP in AM Consulted cardiology for further eval may need LHC.. NPO after mid night (2) Elevated troponin Current Visit: Yes Status: Acute Assessment and Plan: Stable and adynamic @ 0.07 Most likely demand. No acute intervention (3) AAA (abdominal aortic aneurysm) without rupture Current Visit: No Status: Acute Assessment and Plan: s/p repair f/u with surgeon as an out pt (4) COPD (chronic obstructive pulmonary disease) Current Visit: Yes Status: Acute Assessment and Plan: No acute exacerbation. Nebs PRN (5) DVT prophylaxis Current Visit: Yes Status: Acute Assessment and Plan: heparin sc (6) Tobacco abuse Current Visit: Yes Status: Acute Assessment and Plan: Counseled to quit smoking placed on nicotine patch - Time Spent with Patient Total time spent is greater than 50% in coordination of care (as documented) at patient's floor/unit and/or counseling patient: Internal Medicine: Result - Labs CBC & Chem 7: 07/28/18 00:59 07/28/18 00:59 Labs: Short CBC 07/28/18 Range/Units 00:59 WBC 12.8 H (4.3-11.1) K/mcL Hgb 14.9 (12.9-16.9) g/dL Hct 45.7 (37.5-50.1) % Plt Count 222 (140-400) K/mcL Neutrophils # 9.5 H (1.6-8.9) K/mcL BMP 07/28/18 00:59 Sodium 141 Potassium 3.5 Chloride 100 Carbon Dioxide 33 H BUN 19 Creatinine 1.47 H Glucose 86 Calcium 10.0 Cardiac Enzymes 07/27/18 07/27/18 07/28/18 Range/Units 14:49 19:29 00:59 Troponin I 0.06 H* 0.06 H* 0.07 H* (< 0.04) ng/mL - Impressions Impressions Echocardiogram 07/27/18 13:30 Impressions: LVEF 36-40%. Moderate global left ventricular systolic dysfunction with regional variations. Mildly dilated left ventricle. Moderate left ventricular diastolic dysfunction. Normal right ventricular structure and function. Mild tricuspid regurgitation. No evidence of pulmonary hypertension. Left Ventricular Wall Motion: Rest Echo Findings The apex, apical inferior, mid inferior, basal inferior, apical anterior, mid anterior, basal anterior, apical septal, mid inferior septal, basal inferior septal, apical lateral, mid anterior lateral, basal anterior lateral, mid anterior septal, mid inferior lateral, basal anterior septal and basal inferior lateral junior were hypokinetic. Findings: Study Quality * Technically sub-optimal due to poor echocardiographic windows. ECG Findings * Sinus rhythm with BBB. Left Ventricle * LVEF 36-40%. Moderate global left ventricular systolic dysfunction with regional variations. * Mildly dilated left ventricle. * Moderate left ventricular diastolic dysfunction. * Definity echo contrast was used. * Atypical septal motion consistent with bundle branch block. * Right Ventricle * Normal right ventricular structure and function. Left Atrium * Normal left atrial size. Right Atrium * Normal right atrial size. Aortic Valve * Aortic valve not well visualized. * Normal aortic valve structure. * No aortic regurgitation. * No aortic stenosis. Mitral Valve * Normal mitral valve structure. * No mitral regurgitation. * No mitral stenosis. Tricuspid Valve * Mild tricuspid regurgitation. * No evidence of pulmonary hypertension. * Normal tricuspid valve structure. * No tricuspid stenosis. Pulmonic Valve * Pulmonic valve not well visualized. Aorta * Normally sized aortic root. Pericardium * There is a trivial pericardial effusion present. * There is no echocardiographic evidence of tamponade. IVC * Normal IVC dimensions and inspiratory collapse. Pulmonary Artery * Pulmonary artery not well visualized. Consult Discharge Plan - Plan Referrals: NONE,PCP [Primary Care Provider] - (1) CHF (congestive heart failure) Qualifiers: Heart failure type: combined systolic and diastolic Heart failure chronicity: acute Qualified Code(s): I50.41 - Acute combined systolic (congestive) and diastolic (congestive) heart failure (4) COPD (chronic obstructive pulmonary disease) Qualifiers: COPD type: unspecified COPD Qualified Code(s): J44.9 - Chronic obstructive pulmonary disease, unspecified
--- NOTE | 2018-07-28 13:56 | Cardiology Consult Note ---
Date of Encounter: 07/28/18 Time of Encounter: 13:48 Assessment and Plan (1) CHF (congestive heart failure) Current Visit: Yes Status: Acute Acute systolic CHF. EF 35-40% on echo. Global systolic dysfunction. Presented with fluid overload. Treated with IV lasix. LLE went back to baseline. RLL with continued significant edema. Check doppler for unilateral edema. H/o remote DVT. Lasix discontinued for mild CORNELIO. Change lopressor to carvedilol. Add aceI if CORNELIO resolves. Ischemic evaluation recommended for further evaluation of new CMP. Risk, benefi t, and alternatives reviewed. Patient agrees with plan. NPO after midnight. Strict I&O and daily weight. Qualifiers: Heart failure type: combined systolic and diastolic Heart failure chronicity: acute Qualified Code(s): I50.41 - Acute combined systolic (congestive) and diastolic (congestive) heart failure (2) Unilateral edema of lower extremity Current Visit: Yes Status: Acute Unilateral edema noted. H/o prior DVT no longer on AC. LE doppler ordered t r/o recurrent DVT. (3) Elevated troponin Current Visit: Yes Status: Acute Mild troponin elevation. EKG- SR with RBBB. Likely demand ischemia in the setting of acute systolic CHF. LHC pending for further evaluation of new CMP. Discussion w patient/family: The assessment and plan as outlined above was discussed with the patient and/or family members who expressed understanding and agreement. All questions were answered. Thank you for involving us in the care of your patient. Please call with any questions. History of Present Illness Consult date: 07/28/18 Requesting physician: Sheri Lira Consult reason: Abnormal echo Chief complaint: SOB, edema, weight gain, pND History of present illness: Mr. Szymanski is a 63 year old male with past medical history of AAA repair 02/2018, COPD, tobacco use, DVT, and newly diagnosed HTN. He presented with increasing BLE edema, PND, and SOB with exertion for 4 weeks. . States that he woke up stru ggling to breath and diaphoretic 4 days ago. He was treated for acute CHF. His echocardiogram showed newly reduced EF at 35-40%. Global systolic dysfunction. Cardiology consulted for new cardiomyopathy. Patient denies prior history of CHF or CAD. He denies chest pain. Denies palpitations. Denies dizziness or syncope. C/o chronic left shoulder pain he relates to prior shoulder surgery. [facility] had DE in his 50's. Past Med Surg Social Fam HX - Past Medical History Medical history: COPD, DVT, GERD Additional medical history: LDDD, RLS. Psychiatric history: no psych history - Past Surgical History Additional surgical history: AAA, Left Shoulder Sx x5, Marita, Hernia Repair, - Social History Smoking Status: Current every day smoker Packs per day: 1.5 Smokeless Tobacco Status: No Alcohol use: none Drug use: none - Family History Mother Living Status: Hx Family Cardiac Disorders: Yes (AICD) Hx Family Respiratory Disorders: Yes Father Living Status: Hx Family Cardiac Disorders: Yes Hx Family Respiratory Disorders: Yes Medications and Allergies Albuterol Sulfate [Ventolin Hfa] 108 aerosol IH Q4H PRN 02/20/18 [History] Aspirin [Ecotrin] 325 mg PO DAILY 02/20/18 [History] Gabapentin [Neurontin] 400 mg PO QID 02/20/18 [History] Naproxen Sodium [Aleve] 440 mg PO DAILY 02/20/18 [History] Omeprazole [PriLOSEC] 40 mg PO DAILY 02/20/18 [History] Oxycodone HCl/Acetaminophen [Percocet 7.5-325 mg Tablet] 1 each PO TID PRN 02/20/18 [History] clonazePAM [Clonazepam] 0.5 mg PO DAILY 02/20/18 [History] Allergy/AdvReac Type Severity Reaction Status Date / Time acetaminophen [From Vicodin] Allergy Itching Verified 07/27/18 11:03 hydrocodone [From Vicodin] Allergy Itching Verified 07/27/18 11:03 Sulfa (Sulfonamide Allergy Nausea Verified 07/27/18 11:03 Antibiotics) All Systems Review: The remainder of the systems were reviewed and are negative Physical Examination Vital Signs, Last 4 Hours Temp Pulse Resp BP Pulse Ox 07/28/18 11:31 98.0 F 84 18 148/95 92 General: Conversant, No Apparent Distress HEENT: Atraumatic, Normocephaly, Mucus Membranes Moist Neck: No JVD, Normal carotid pulses Cardiac: Reg Rate and Rhythm, Normal S1 and S2, No Murmur Lungs: Normal Breath Sounds, No Wheeze, Rales, Rhonchi Neuro: Alert and responsive, No focal deficits noted Abdomen: Soft, Non-Tender Skin: No rashes noted on visualized skin Musculoskeletal: No Chest Wall Tenderness Extremities: No Clubbing, No Cyanosis, Normal Pulses, Other (1+ pitting edema RLE.) Results 07/28/18 00:59 07/28/18 00:59 Lab Results 07/27/18 07/27/18 07/28/18 14:49 19:29 00:59 WBC Hgb Hct Plt Count Sodium Potassium Chloride Carbon Dioxide BUN Creatinine Glucose Calcium Magnesium Troponin I 0.06 H* 0.06 H* 0.07 H* 07/28/18 07/28/18 00:59 00:59 WBC 12.8 H Hgb 14.9 Hct 45.7 Plt Count 222 Sodium 141 Potassium 3.5 Chloride 100 Carbon Dioxide 33 H BUN 19 Creatinine 1.47 H Glucose 86 Calcium 10.0 Magnesium 2.1 Troponin I - Imaging and Cardiology Echo: report reviewed - EKG Interpretation EKG results cardiology: personally reviewed Consult Discharge Plan - Plan Referrals: NONE,PCP [Primary Care Provider] -
[2018-07-28 15:41] LABS: Calcium 9.6 mg/dL (8.6-10.3); Potassium 3.8 mEq/L (3.5-5.1)
[2018-07-28] MEDS ORDERED: Furosemide 20 MG/2 ML VIAL IVP SCH (17:00)
[2018-07-29] MEDS: *HR* Heparin 5,000 UNIT/ML VIAL SQ SCH ×2 (04:31→18:13)
[2018-07-29 05:33] LABS: BUN/Creatinine Ratio 17 (6-26); Blood Urea Nitrogen 22 mg/dL (8-23); Carbon Dioxide 28 mEq/L (23-29); Chloride 100 mEq/L (98-107); Chol/HDL Ratio 3.3 (0-4.9); Cholesterol 114 mg/dL (< 200); Glucose 84 mg/dL (70-105); HDL Cholesterol 35 mg/dL (40-59); LDL Cholesterol,Calculated 54 mg/dL (0-99); Magnesium 1.9 mg/dL (1.6-2.6); Osmolality,Calculated 291 (280-300); Potassium 3.8 mEq/L (3.5-5.1); Sodium 139 mEq/L (136-145); Triglycerides 124 mg/dL (< 150); eGFR For Non-African Americans 55 (> 60)
[2018-07-29] MEDS: *HR* OxyCODONE/APAP 7.5/325 TABLET PO PRN ×2 (07:05→18:16)
[2018-07-29] MEDS: Gabapentin 400 MG CAPSULE PO SCH ×4 (09:24→22:19)
[2018-07-29] MEDS: clonazePAM 0.5 MG TABLET PO SCH (09:24)
[2018-07-29] MEDS: Nicotine 21 MG PATCH.TD24 TD SCH (09:24)
[2018-07-29] MEDS: Aspirin Enteric Coated 325 MG Tablet PO SCH (09:25)
--- NOTE | 2018-07-29 14:41 | Pre-Sedation Evaluation ---
Pre-sedation evaluation - Pre-sedation checklist Date of procedure: 07/29/18 Procedure: [facility] Recent Vitals: Last Vital Signs Temp 98.4 F 07/29/18 11:21 Pulse 72 07/29/18 11:21 Resp 18 07/29/18 11:21 BP 143/90 07/29/18 11:21 Pulse Ox 93 07/29/18 11:21 H&P (including ROS) documented in medical record: Yes Previous reaction to sedatives/anesthetics: No Dietary Status: NPO after Midnight Airway Assessment: Patient can open mouth completely, TMJ function normal, Micrognathia (under-bite, receding chin) absent, Neck with adequate range of mot ion Dentition: No loose teeth or bridges Possible difficult airway: No ASA Classification *see protocol: CLASS II-Mild systemic disease Plan of Care: Pt appropriate candidate for procedure/moderate/conscious sedation, Risks/benefits of procedure/sedation discussed w/ patient/family Cardiac Registry (Cardio Only) - Functional Capacity Functional Capacity: < 4 METS - Clincal Frailty Scale Clinical Frailty Scale: Vulnerable
--- NOTE | 2018-07-29 16:17 | Internal Med Progress Note ---
Hospitalist Progress Note - Encounter Date of Encounter: 07/29/18 Time of Encounter: 16:15 - Subjective Interval History: Mr. zSymanski is a 63 year old male with known PMH of AAA repair in February, COPD, chronic tobacco dependence and GERD pt presented to ER with complaints of progressively worsening shortness of breath about 4 week s duration. Patient sa ys he has noticed worsening lower extremity edema in the last 2 weeks. Shortness of breath has gotten so sever to the point he is unable to lay flat in a bed and had to sleep sitting upright in a chair last night. CXR showed pulmonary edema. He was admitted in the hospital and placed him on conveyor monitor. His troponin's was slightly elevated at 0.07 and adynamic. He was placed on IV Lasix. Patient stated his feeding better today. Denied anymore shortness of breath / LE edema. Denied any CP. He still has moderate SOB and LIND. still requiring 2 lit O2. - Exam Vitals: Temp Pulse Resp BP Pulse Ox 98.1 F 68 18 131/86 92 07/29/18 15:11 07/29/18 15:11 07/29/18 15:11 07/29/18 15:11 07/29/18 15:11 Exam: Gen: Alert, awake, Oriented to time,place and person Chest: Diminished breath sounds B/L, mild wheezing, No crackles, No rales Heart: S1S2+ RRR No murmurs Abd: Soft, NT, BS +, No organomegaly Ext: trace edema, pulses are palpable, No calf tenderness Neuro : Benign findings Skin: No rash. - Assessment and Plan (1) CHF (congestive heart failure) Current Visit: Yes Status: Acute Assessment and Plan: Pt comes in with shortness of breath and orthopnea likely secondary to acute CHF CXR shows pulmonary edema. His 2 D Echo showed - LVEF 35-40%, Moderate left ventricular diastolic dysfunct ion so he does have combined Systolic and diastolic CHF exacerbation Cont IV Lasix 20mg BID Started him on BB Metoprolol 25mg BID, Lisinopril and ASA Reviewed FLP Consulted cardiology for further eval..Scheduled for LHC today Patient does need to stay in the hospital more than 2 midnights due to his complex medical problems acute hypoxic respiratory failure with new onset systolic CHF exacerbation. So we will change him to full admission today. I did review my colleague Dr. Sanchez's H & P including HPI, PMH, PSH, FH, SH, and ROS no changes noticed (2) Acute respiratory failure with hypoxia Current Visit: Yes Status: Acute Assessment and Plan: Due to CHF exacerbation still requiring 2 lit O2 may need home O2 eval (3) Elevated troponin Current Visit: Yes Status: Acute Assessment and Plan: Stable and adynamic @ 0.07 Most likely demand. going for [facility] today (4) AAA (abdominal aortic aneurysm) without rupture Current Visit: No Status: Acute Assessment and Plan: s/p repair f/u with surgeon as an out pt (5) COPD (chronic obstructive pulmonary disease) Current Visit: Yes Status: Acute Assessment and Plan: No acute exacerbation. Nebs PRN (6) Acute kidney injury superimposed on CKD Current Visit: Yes Status: Acute Assessment and Plan: Seems to be he does have CORNELIO with CKD-2 cont close monitoring will start him on Mucormyst 600mg BID x 4 doses (7) Tobacco abuse Current Visit: Yes Status: Acute Assessment and Plan: Counseled to quit smoking placed on nicotine patch (8) DVT prophylaxis Current Visit: Yes Status: Acute Assessment and Plan: heparin sc - Time Spent with Patient Total time spent is greater than 50% in coordination of care (as documented) at patient's floor/unit and/or counseling patient: Internal Medicine: Result - Labs CBC & Chem 7: 07/28/18 00:59 07/29/18 03:51 Labs: BMP 07/29/18 03:51 Sodium 139 Potassium 3.8 Chloride 100 Carbon Dioxide 28 BUN 22 Creatinine 1.32 H Glucose 84 Calcium 9.0 Consult Discharge Plan - Plan Referrals: NONE,PCP [Primary Care Provider] - (1) CHF (congestive heart failure) Qualifiers: Heart failure type: combined systolic and diastolic Heart failure chronicity: acute Qualified Code(s): I50.41 - Acute combined systolic (congestive) and diastolic (congestive) heart failure (5) COPD (chronic obstructive pulmonary disease) Qualifiers: COPD type: unspecified COPD Qualified Code(s): J44.9 - Chronic obstructive pulmonary disease, unspecified
--- NOTE | 2018-07-29 16:20 | Electrocardiograph Report ---
[address] [address] Test Date: 2018-07-27 Pat Name: Jeison Szymanski Department: [id number] Room: 3B Gender: M Ex Chef: : 1955 Requested By: Radha Murray Order Number: [id number] Reading MD: Isai Aguilar Measurements Intervals [place] Rate: 87 P: 78 [place]: 144 QRS: 117 QRSD: 123 T: -10 QT: 504 QTc: 607 Interpretive Statements Sinus rhythm Atrial premature complex RBBB Electronically Signed On 07-29-2018 16:19:12 EDT by Isai Aguilar
[2018-07-29] MEDS ORDERED: Heparin 1,000 UNITS/500 mL 500 ML ONE (16:23)
[2018-07-29] MEDS ORDERED: ISOVUE-370 200 ML INFUS..BTL ONE (16:23)
[2018-07-29] MEDS ORDERED: 0.9 % Sodium Chloride 1,000 ML ONE (16:23)
[2018-07-29] MEDS ORDERED: *HR* Heparin 10,000 UNIT/10 ML VIAL ONE (16:23)
[2018-07-29] MEDS ORDERED: Nitroglycerin 1,000 MCG/10 ML VIAL IV ONE (16:23)
[2018-07-29] MEDS ORDERED: *HR* Midazolam HCl 2 MG/2 ML VIAL ONE (16:47)
[2018-07-29] MEDS ORDERED: *HR* FentaNYL (PF) 100 MCG/2 ML VIAL ONE (16:47)
--- NOTE | 2018-07-29 17:39 | Invasive Diagnostic Lab Proc ---
Name: Jeison Szymanski Date of Study: 07/29/2018 Date: 1955 Ht: 70.9in Medical Record#: [id number] Age: 63 Wt: 216.05lb Gender: Male BSA: 2.18 Order #: [id number] BMI: 30.25 Physicians Procedure Physician: Nan Shelton MD, [facility] Referring MD: Referring MD: Staff Name Position Time In Cristofer Werner RN Monitor 04:44 PM Noa Byrnes RN Corduroy Cutting Supervisor 04:45 PM Aleyda, Lacey RT (R) Scrub 04:45 PM Indications Indication Non-Stemi Procedures Performed Procedure L HRT ARTERY/VENTRICLE ANGIO Pre-Procedure Checklist Informed consent is complete signed and on chart. H&P is on chart. ID band is on and ID verified with patient. Patient NPO for procedure The procedure was described for the patient and questions were answered. ECG is on chart. Plan of Care Patient will tolerate the procedure without complications. Adequate level of comfort will be maintained. Hemodynamics will remain stable Patient will recover from procedure without complications. Respiratory function will be maintained. Cardiac rhythm will remain stable. Patient temperature will be maintained. Patient and/or family have verbalized understanding of the procedure. Patient Education Chief Complaint/Reason for Test: Cardiac Cath Developmental Category: Adult (18-64 years) Developmentally Appropriate for Age: Yes Learning Barriers: None Education Needs: Procedure Education Method: Verbal Information Taught: Cardiac Cath Educational Evaluation: Able to repeat information Intravenous Access Time IV Size Location DC'd Fluid/Drip Rate Units RN 18g 1 /" Patent On Arrival 0.9NaCl ml/hr Allergies Sulfa (Sulfonamide Antibiotics) hydrocodone acetaminophen SULFA Vital Signs Time BP (mmHg) HR (bpm) O2 Sat. RR (bpm) LOC 04:50 PM / % 5 = Fully awake and oriented or at pre-proc level 04:50 PM / % 4 = Oriented but drowsy 04:47 PM 163 / 112 85 97 % 18 04:51 PM 156 / 100 86 94 % 10 04:56 PM 148 / 94 82 91 % 15 05:01 PM 158 / 103 73 93 % 23 05:06 PM 151 / 95 79 93 % 16 05:11 PM 139 / 99 88 94 % 22 05:16 PM 150 / 98 78 95 % 12 05:05 PM / % 4 = Oriented but drowsy Procedural Medications Time Medication Dose Units Method Given By 04:50 PM Oxygen 2 L/min nasal cannula Noa Byrnes RN 04:50 PM Versed 2 mg Intravenous Noa Byrnes RN 04:50 PM Fentanyl 50 mcg Intravenous Noa Byrnes RN 04:57 PM Benadryl 50 mg Intravenous Noa Byrnes RN 04:59 PM Lidocaine 2% 19 ml Subcutaneous Nan Shelton MD, [facility] ASA Classification: CLASS II- Mild systemic disease (i.e. well-controlled diabetes, hypertension, asthma, cigarette smoking) Abrahan Score Preprocedure Postprocedure Activity 2- Moves 4 extremities sustained head lift Activity 2- Moves 4 extremities sustained head lift Circulation 2- SBP +/= 20 points of pre-anesthetic level Circulation 2- SBP +/= 20 points of pre-anesthetic level Consciousness 2- Awake and alert oriented x 3 Consciousness 2- Awake and alert oriented x 3 O2 Saturation 2- Able to maintain O2 satruation of 92% on room air O2 Saturation 2- Able to maintain O2 satruation of 92% on room air Respiratory 2- Able to deep breathe and cough well Respiratory 2- Able to deep breathe and cough well Total Score 10 Total Score 10 Contrast Agent: Isovue Diagnostic Contrast: 71 ml Total Contrast: 71 ml Fluoro Dose: 27 mGy Procedure Log Time Note Enter By 04:44 PM Pt arrived to cath lab 1 at 16:44 cedwards 04:45 PM Cristofer Werner RN Position: Monitor Time in: 16:44 cedwards 04:45 PM Noa Byrnes RN Position: Corduroy Cutting Supervisor Time in: 16:45 cedwards 04:45 PM Lacey Maynard RT (R) Position: Scrub Time in: 16:45 cedwards 04:45 PM Patient charges- Angio tray pack, Navilyst 3mm J, Pulse Oximetry and ACIST tubing and transducer cedwards 04:45 PM IV Supplies used: J loop Angio Cath. cedwards 04:45 PM Hair removed from procedure site in procedure lab using clippers. Bilateral groin prepped with Chloraprep by Noa Byrnes RN, then patient was draped. Skin intact. cedwards 04:45 PM ASA Class CLASS II- Mild systemic disease (i.e. well-controlled diabetes, hypertension, asthma, cigarette smoking) cedwards 04:45 PM Meet and greet completed cedwards 04:46 PM Vitals capture started with the following parameters, Patient=Adult, Interval=5 min, Initial Mvuorotj=578 mmHg, Deflation Rate=5 mmHg, Cuff placed on Right Leg 04:46 PM Recorded ECG: HR=84 Condition=Condition 1 04:47 PM HR=85 bpm, UQYQ=906/112 mmhg, SpO2=97.0 %, Resp=18 B/min, EtCO2=32 mmHg, Comment=NSR 04:47 PM Sign in performed according to hospital policy. Informed consent was obtained. cedwards 04:47 PM Procedure start 16:47 cedwards 04:50 PM Time: 16:49 Patient comfortable and pain free: Yes cedwards 04:50 PM Time: 16:50LOC: 5 = Fully awake and oriented or at pre-proc level cedwards 04:50 PM Time: 16:50 Oxygen on at 2 L/min per nasal cannula by Noa Byrnes RN cedwards 04:50 PM Time: 16:50 Versed 2 mg Intravenous Given by Noa Byrnes RN cedwards 04:50 PM Time: 16:50 Fentanyl 50 mcg Intravenous Given by Noa Byrnes RN cedwards 04:51 PM HR=86 bpm, NYJB=121/100 mmhg, SpO2=94.0 %, Resp=10 B/min, EtCO2=32 mmHg, Comment=NSR 04:53 PM Case Start 04:53 PM CathStat 04:56 PM HR=82 bpm, TDVA=904/94 mmhg, SpO2=91.0 %, Resp=15 B/min, EtCO2=40 mmHg, Comment=NSR 04:58 PM Time: 16:57 Benadryl 50 mg Intravenous Given by Noa Byrnes RN cedwards 04:58 PM Clinical Presentation: Unstable angina cedwards 04:58 PM Time out was performed according to hospital policy. Conscious sedation and anesthesia was achieved (see medication log with in this report above) cedwards 05:01 PM Time: 16:59 19 ml Lidocaine 2% to right groin Subcutaneous Given by Nan Shelton MD, [facility] cedwards 05:01 PM Access obtained by percutaneous puncture. 5Fr 10cm Terumo [place] sheath placed in right Femoral artery. [id number] cedwards 05:01 PM HR=73 bpm, LJME=910/103 mmhg, SpO2=93.0 %, Resp=23 B/min, EtCO2=36 mmHg, Comment=NSR 05:02 PM 0.035 145cm Navilyst 3mmJ wire [id number] cedwards 05:02 PM 5Fr FL 4 catheter inserted over the wire [facility] cedwards 05:03 PM LCA angiography performed in multiple views. cedwards 05:03 PM Recorded Pressure: Ao, HR=86, Condition=Condition 1 (Aorta) Ao 134/95/114 05:04 PM Catheter removed cedwards 05:04 PM 0.035 260cm Navilyst 3mmJ wire [id number] cedwards 05:04 PM 5Fr FR 4 catheter inserted over the wire [facility] cedwards 05:05 PM Time: 16:50 Patient comfortable and pain free: Yes cedwards 05:05 PM Time: 16:50LOC: 4 = Oriented but drowsy cedwards 05:05 PM RCA angiography performed in multiple views. cedwards 05:06 PM HR=79 bpm, OZKO=627/95 mmhg, SpO2=93.0 %, Resp=16 B/min, EtCO2=41 mmHg, Comment=NSR 05:07 PM Recorded Pressure: Ao, HR=78, Condition=Condition 1 (Aorta) Ao 138/99/117 05:07 PM Catheter removed cedwards 05:07 PM 5Fr Pigtail catheter inserted over the wire [facility] cedwards 05:07 PM Catheter crossed the aortic valve and was selectively placed in the left ventricle. Pressures recorded on pullback for left heart catheterization. cedwards 05:08 PM Bolus angiogram of left Ventricle complete: 8 ml/sec for a total of 24 mls cedwards 05:09 PM Pressure channel 1 zeroed. 05:09 PM Recorded Pressure: LV, HR=80, Condition=Condition 1 (Left Ventricle) LV 141/-1/11 05:10 PM Recorded Pressure: LV, Ao, HR=81, Condition=Condition 1 (Left Ventricle) LV 119/26/40, (Aorta) Ao 128/96/112 05:11 PM Coronary Dominance: right cedwards 05:11 PM Catheter removed cedwards 05:11 PM HR=88 bpm, QYJG=070/99 mmhg, SpO2=94.0 %, Resp=22 B/min, EtCO2=40 mmHg, Comment=NSR 05:12 PM Femoral angio performed cedwards 05:12 PM Procedure completed at 17:12 07/29/2018 cedwards 05:12 PM Did you address GABY flow and Dominance? YesCoronary Dominance: right cedwards 05:13 PM Sign out completed: Radiation Dose 175.37 mGy, 27 Gy/cm2 Fluoro Time: 3.7 Isovue 370 - 200ml contrast 71 ml given by Nan Shelton MD, [facility]. Complications: None. 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 Sedation minutes 22. Cardiac Rehab Consult needed: No. Confirmed administered medications: Yes cedwards 05:13 PM Isovue 370 - 200ml,1 Bottle(s) used. cedwards 05:13 PM Arterial sheath pulled, Mynx closure device used and was Successful [id number] S/N. cedwards 05:13 PM Estimated Blood Loss: minimal cedwards 05:13 PM Post ECG NSR cedwards 05:14 PM Post Blood Pressure 139/99 cedwards 05:14 PM 17:14 Post Pulses Bilateral DP & PT 2+ cedwards 05:14 PM Information taught Cardiac Cath and Mynx cedwards 05:14 PM Education needs Procedure, Plan of Care, and Disease Process cedwards 05:14 PM Learning barriers :None cedwards 05:14 PM Education Methods Verbal cedwards 05:14 PM Education evaluation Able to repeat information cedwards 05:14 PM Site status No bleeding/hematoma - Rt Groin as reported by Nan Shelton MD, FACC at 17:14 cedwards 05:14 PM Opsite applied cedwards 05:15 PM Plavix, Effient or Brilinta given No cedwards 05:16 PM HR=78 bpm, ZIGL=681/98 mmhg, SpO2=95 %, Resp=12 B/min 05:20 PM Time: 17:05LOC: 4 = Oriented but drowsy cedwards 05:20 PM Time: 17:05 Patient comfortable and pain free: Yes cedwards 05:25 PM Lesion found in Proximal RCA. Pre Stenosis: 25 Pre GABY Flow: cedwards 05:25 PM Lesion found in Mid RCA. Pre Stenosis: 40 Pre GABY Flow: cedwards 05:26 PM Lesion found in Proximal LAD. Pre Stenosis: 20 Pre GABY Flow: cedwards 05:26 PM Lesion found in Proximal Circumflex. Pre Stenosis: 30 Pre GABY Flow: cedwards 05:26 PM Lesion found in Mid Circumflex. Pre Stenosis: 25 Pre GABY Flow: cedwards 05:28 PM Family placed in consult room. cedwards 05:28 PM Report given to 3B RN Pt taken to 3B Room #66. 17:28 cedwards 05:29 PM Patient out of room: 17:29 cedwards 05:29 PM Complications: None cedwards Complications Complication None None Hemodynamics Pressures Site Systolic/A Wave Diastolic/V Wave Mean AO 134 95 114 AO 138 99 117 LV 141 -1 11 LV 119 26 40 AO 128 96 112 Post Procedure Information Blood Pressure: 139/99 mmHg Rhythm: NSR Post procedural instructions were given Closure Device Time Device Success/Fail 07/29/2018 5:29:00 PM MynxGrip Successful Site Checks Time Location Status Staff Sheath In? Note 05:14 PM Rt Groin No bleeding/hematoma Nan Shelton MD, [facility] Pulses Time Site Pre-Procedure Post-Procedure Note Bilateral DP & PT 2+ Bilateral radial 2+ 5:14:00 PM Bilateral DP & PT 2+ Updated by Cristofer Werner RN on 07/29/2018 5:29:48 PM electronically signed on 07/29/2018 5:31:56 PM with status of Final
--- NOTE | 2018-07-29 17:47 | Electrocardiograph Report ---
[place] [address] Test Date: 2018-07-28 Pat Name: Jeison Szymanski Department: 113 Room: 3B66 Gender: M Psychologist Engineering: : 1955 Requested By: Sheri Lira Order Number: [id number] Reading MD: Anel Trammell Measurements Intervals [place] Rate: 71 P: 72 GA: 157 QRS: 114 QRSD: 132 T: 0 QT: 401 QTc: 423 Interpretive Statements SINUS RHYTHM RIGHT BUNDLE BRANCH BLOCK [120+ ms QRS DURATION, UPRIGHT V1, 40+ ms S IN I/aVL/V4/V5/V6] LEFT POSTERIOR FASCICULAR BLOCK [QRS AXIS > 109, INFERIOR Q] MODERATE T-WAVE ABNORMALITY, CONSIDER LATERAL ISCHEMIA [-0.1+ mV T WAVE IN I/aVL/V5/V6] Electronically Signed On 07-29-2018 17:45:53 EDT by Anel Trammell
[2018-07-29] MEDS ORDERED: clonazePAM 0.5 MG TABLET PO SCH (21:00)
[2018-07-29] MEDS: *HR* Acetylcysteine 20% 600 MG/3 ML ORAL SYRINGE PO SCH (22:17)
[2018-07-30] MEDS: *HR* OxyCODONE/APAP 7.5/325 TABLET PO PRN ×2 (01:15→07:47)
[2018-07-30] MEDS: *HR* Heparin 5,000 UNIT/ML VIAL SQ SCH (05:41)
[2018-07-30 06:02] LABS: Calcium 9.8 mg/dL (8.6-10.3); Magnesium 2.2 mg/dL (1.6-2.6); Potassium 3.9 mEq/L (3.5-5.1)
[2018-07-30] MEDS: Gabapentin 400 MG CAPSULE PO SCH (07:43)
[2018-07-30] MEDS: Nicotine 21 MG PATCH.TD24 TD SCH (07:44)
--- NOTE | 2018-07-30 08:54 | Discharge Summary ---
- NOTES TO OUTPATIENT PROVIDER Notes to Outpatient Provider: f/u with PCP in one week. Please start taking Lasix 40mg Po Daily from 08/01/18. Please start taking Coreg, Lisinopril and Lipitor for your heart failure. f/u with Cardiology in 2 weeks. Please go for f/u lab work BMP in 2 days. Date of Encounter: 07/30/18 Time of Encounter: 08:54 - Discharge Diagnosis (1) CHF (congestive heart failure) Priority: Primary Status: Acute Qualifiers: Heart failure type: combined systolic and diastolic Heart failure chronicity: acute Qualified Code(s): I50.41 - Acute combined systolic (congestive) and diastolic (congestive) heart failure (2) Acute respiratory failure with hypoxia Priority: Primary Status: Acute (3) Elevated troponin Priority: Primary Status: Acute (4) AAA (abdominal aortic aneurysm) without rupture Priority: Secondary Status: Acute (5) COPD (chronic obstructive pulmonary disease) Priority: Secondary Status: Acute Qualifiers: COPD type: unspecified COPD Qualified Code(s): J44.9 - Chronic obstructive pulmonary disease, unspecified (6) Acute kidney injury superimposed on CKD Priority: Secondary Status: Acute (7) Tobacco abuse Priority: Secondary Status: Acute (8) DVT prophylaxis Priority: Secondary Status: Acute Hospital course: Mr. Szymanski is a 63 year old male with known PMH of AAA repair in February, COPD, chronic tobacco dependence and GERD pt presented to ER with complaints of progressively worsening shortness of breath about 4 week s duration. Patient says he has noticed worsening lower extremity edema in the last 2 weeks. Shortness of breath has gotten so sever to the point he is unable to lay flat in a bed and had to sleep sitting upright in a chair last night. CXR showed pulmonary edema. He was admitted in the hospital and placed him on senior etl developer. His troponin's were slightly elevated at 0.07 and adynamic. He was started on IV Lasix. His symptoms started improving slowly. Still required 2 lit O2 on day after aggressive IV diuresis. His 2 D echo showed systolic dysfunction with LVEF @ 36-40%. Pt was evaluated by training engineer, who did [facility] y/d showed - Nonobstructive coronary artery disease. Recommended aggressive medical management. Placed him on ACEI, BB Coreg , Lipitor 80mg and Lasix. He does have mild CORNELIO with CKD-3, so recommend to go for f/u BMP in 2 days. Also requested to held Lasix and Lisinopril for 2 days. - Time Spent with Patient Total time spent providing and/or coordinating discharge services: - Discharge Medications Prescriptions: New Aspirin 81 mg PO DAILY tab.chew Carvedilol [Coreg] 6.25 mg PO BIDWM #60 tablet Furosemide [Lasix] 40 mg PO DAILY #30 tablet Atorvastatin Calcium [Lipitor] 80 mg PO HS #30 tab Nicotine Patch [Nicoderm] 21 mg TD DAILY #30 patch.td24 Lisinopril [Zestril] 10 mg PO DAILY #30 tablet Continued clonazePAM [Clonazepam] 0.5 mg PO DAILY Omeprazole [PriLOSEC] 40 mg PO DAILY Gabapentin [Neurontin] 400 mg PO QID Albuterol Sulfate [Ventolin Hfa] 108 aerosol IH Q4H PRN PRN Reason: Shortness Of Breath Oxycodone HCl/Acetaminophen [Percocet 7.5-325 mg Tablet] 1 each PO TID PRN PRN Reason: Pain Discontinued Naproxen Sodium [Aleve] 440 mg PO DAILY Aspirin [Ecotrin] 325 mg PO DAILY Home Medications: Albuterol Sulfate [Ventolin Hfa] 108 aerosol IH Q4H PRN 02/20/18 [History] Gabapentin [Neurontin] 400 mg PO QID 02/20/18 [History] Omeprazole [PriLOSEC] 40 mg PO DAILY 02/20/18 [History] Oxycodone HCl/Acetaminophen [Percocet 7.5-325 mg Tablet] 1 each PO TID PRN 02/20/18 [History] clonazePAM [Clonazepam] 0.5 mg PO DAILY 02/20/18 [History] Aspirin 81 mg PO DAILY tab.chew 07/30/18 [Rx] Atorvastatin Calcium [Lipitor] 80 mg PO HS #30 tab 07/30/18 [Rx] Carvedilol [Coreg] 6.25 mg PO BIDWM #60 tablet 07/30/18 [Rx] Furosemide [Lasix] 40 mg PO DAILY #30 tablet 07/30/18 [Rx] Lisinopril [Zestril] 10 mg PO DAILY #30 tablet 07/30/18 [Rx] Nicotine Patch [Nicoderm] 21 mg TD DAILY #30 patch.td24 0515/19 [Rx] Allergies/Adverse Reactions: Allergy/AdvReac Type Severity Reaction Status Date / Time acetaminophen [From Vicodin] Allergy Itching Verified 07/27/18 11:03 hydrocodone [From Vicodin] Allergy Itching Verified 07/27/18 11:03 Sulfa (Sulfonamide Allergy Nausea Verified 07/27/18 11:03 Antibiotics) Date of admission: 07/29/18 16:15 Primary care physician: PCP NONE Consults: 07/28/18 13:08 Consult to Cardiology [CONS] Routine Comment: Consulting Provider: Cardiology Mobile Reason for Consult: acute systolic CHF exacerbation Time Notified: 13:10 Call Completed: Yes 07/28/18 13:18 Consult to Nurse Navigator [CONS] Routine Comment: CHF, COPD - Constitutional Vitals: Temp Pulse Resp BP Pulse Ox 97.9 F 65 18 145/95 93 07/30/18 07:37 07/30/18 07:37 07/30/18 07:37 07/30/18 07:37 07/30/18 07:37 General appearance: Present: A&O X 3 Exam: Gen: Alert, awake, Oriented to time,place and person Chest: Diminished breath sounds B/L, mild wheezing, No crackles, No rales Heart: S1S2+ RRR No murmurs Abd: Soft, NT, BS +, No organomegaly Ext: no edema, pulses are palpable, No calf tenderness Neuro : Benign findings Skin: No rash. - Patient Status Disposition: Home, Self-Care Condition: Good Overall status at discharge: patient is back to baseline - Ambulatory Orders Ambulatory Orders: Basic Metabolic Panel [CHEM] Time Frame: 2 Days, Facility: [facility], Location: Lab - Discharge Instructions Follow Up With: NONE,PCP [Primary Care Provider] - Nan Shelton MD [Partnered Physician] - - Diet and Activity Activity: increase activity as tolerated Diet: low salt diet
[2018-07-30] MEDS ORDERED: Aspirin 81 MG TAB.CHEW PO SCH (09:00)
[2018-07-30] MEDS ORDERED: Metoprolol XL (24 HR) Succ 25 MG TAB.ER.24H PO SCH (09:00)
[2018-07-30] MEDS: *HR* Acetylcysteine 20% 600 MG/3 ML ORAL SYRINGE PO SCH (11:06)
[2018-07-30 11:28] VITALS: BP 100/63
== END 2018-07-30 12:39 | disposition home or self-care (01) | DRG 286 ==
LOC: EMEROOARM 10:58 → 3BNU 10:58 → SUATTDRO 13:01 → 3BNU 13:50
PROVIDERS: ADMIT Student in an Organized Health Care Education/Training Program; ATTEND Family Medicine